=== PATIENT | female | born 1985 | race Caucasian/White ===

== ENCOUNTER 2017-10-24 05:28 | Day surgery (SDC) | payer OTHER ==
[2017-10-23 13:02] VITALS: BMI 29.2
[2017-10-24 10:36] VITALS: TEMP 98.3
[2017-10-24] MEDS ORDERED: IBUPROFEN 800 MG/8 ML IJ IVPB PRN (12:22)
[2017-10-24] MEDS ORDERED: ACETAMINOPHEN 325 MG TABLET (FP) PO PRN (12:22)
--- NOTE | 2017-10-24 12:23 | HP ---
History & Physical Update - History History: No Change - Physical Physical: No Change - Assessment Assessment: No Change - Plan Plan: No Change (<Missed for suction D&C procedure today. Agree with H &P on chart from 10/19/17.)
[2017-10-24] MEDS ORDERED: LACTATED RINGERS SOLUTION 1,000 ML IV SCH ×2 (12:30→13:30)
--- NOTE | 2017-10-24 13:22 | OP ---
Operative Note - Note: Operative Date: 10/24/17 Pre-Operative Diagnosis: missed , RH positive Operation: suction D&C Findings: normal female genitalia Post-Operative Diagnosis: Same as Pre-op Surgeon: Silva Murphy Anesthesiologist/FACSIMILE MACHINE OPERATOR: Ramiro Mosley Anesthesia: MAC Specimens Removed: products of conception Estimated Blood Loss (mls): 20 Operative Report Dictated: Yes
[2017-10-24] MEDS ORDERED: PROMETHAZINE HCL 25 MG/1 ML VIAL IVPUSH PRN (13:26)
[2017-10-24] MEDS ORDERED: oxyCODONE HCL 5 MG TABLET PO PRN (13:26)
[2017-10-24] MEDS ORDERED: ONDANSETRON 4 MG/2 ML VIAL IVPUSH PRN (13:26)
[2017-10-24 17:03] VITALS: BP 126/68; PULSE 80
--- NOTE | 2017-10-25 15:51 | OP ---
DATE OF OPERATION: 10/24/2017 PREOPERATIVE DIAGNOSIS: Missed at approximately 7 weeks' gestation. POSTOPERATIVE DIAGNOSIS: Missed at approximately 7 weeks' gestation. PROCEDURE: Suction dilation and curettage. SURGEON: Silva Murphy M.D. FENCE ERECTOR: None. ANESTHESIA: MAC ANESTHESIOLOGIST: Ramiro Mosley M.D. COMPLICATIONS: None. SPECIMENS REMOVED: Included products of conception. ESTIMATED BLOOD LOSS: 20 mL. COUNTS: Sponge and instrument count correct. DISPOSITION: Stable to PACU. BRIEF HISTORY AND PROCEDURE: Patient is a 31-year-old female who has been seen in the office with positive test, on ultrasound was found to have a fetus at approximately 7 weeks' gestation with no heart rate. The patient was counseled on her options, and she elected to undergo a dilation and curettage procedure. The consents for the procedure were signed on the morning of October 24, 2017, after the patient was admitted to the [facility] ambulatory surgery unit. The patient was taken back to the operating room, was placed in the dorsal supine position, and given MAC anesthesia by Dr. Ramiro Mosley. She was then admitted, placed in dorsal lithotomy position, and a hard timeout was performed. A speculum was placed inside the vagina. The anterior lip of the cervix was grasped, and the cervix was dilated to accommodate a 7 curved suction curet which was advanced to the fundus of the uterus. Three passes with the suction curet were completed. One pass in a 360-degree fashion with a sharp curet was completed until adequate uterine cry was obtained, and then one final pass with the suction curet was completed. All instruments were removed from the vagina, minimal bleeding was noted from the cervical os, sponge and instrument counts were reported to be correct. The patient was awoken from anesthesia to recovery in stable condition in the PACU after the procedure. SILVA MURPHY DO /[id number]
--- NOTE | 2017-10-26 15:38 | PATH ---
Surgical Pathology Report Patient Name: JONY COATS Med. Rec. #: [id number] /Age/Gender: 1985 (Age: 31) / F Account: [id number] Location: [facility] Taken: 10/24/2017 Received: 10/24/2017 Reported: 10/26/2017 Physicians: Silva Murphy M.D. Specimen(s) Received PRODUCTS OF CONCEPTION FOR CROMOSOMAL STUDIES Clinical History Missed , first trimester Final Diagnosis PRODUCTS OF CONCEPTION, SUCTION DILATION AND CURETTAGE: IMMATURE CHORIONIC VILLI AND DECIDUA CONSISTENT WITH PRODUCTS OF CONCEPTION. CHROMOSOMAL STUDIES ARE PENDING AND WILL BE REPORTED SEPARATELY AN ADDENDUM. Electronically Signed Cierra Maciel M.D. 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 This karyotype is generally incompatible with survival. See [facility] report for additional details (Specimen #[id number]). Cierra Maciel M.D. Gross Description Received fresh labeled "products of conception for chromosomal studies," is a 7.0 x 3.5 x 0.7 cm aggregate of mesa red soft tissue fragments. The villous tissue is identified. No somatic tissue is identified. A business services sales representative portion is placed in RPMI solution and sent for chromosomal analysis. An additional business services sales representative portion is submitted in one cassette. /10/24/2017 saudi/10/24/2017
== END 2017-10-24 17:03 | disposition home or self-care (01) ==
LOC: JASU-SURG 05:28
PROVIDERS: ATTEND Obstetrics & Gynecology
PROC: 10D17ZZ Extraction of Products of Conception, Retained, Via Natural or Artificial Opening (ICD-10-PCS; principal; 2017-10-24 12:00)
DX: O02.1 Missed abortion (principal)
CPT/HCPCS: 86900; 88305-TC; 94760